=== PATIENT | female | born 1975 | race Native Hawaiian/Other Pacific Islander ===

== ENCOUNTER 2022-03-25 17:27 | Observation (INO) | payer OTHER ==
[~2022-03-25] VITALS: Ht 165.1 cm; Wt 64.0 kg
[2022-03-25 19:16] LABS: PLATELET COUNT 382 K/uL (152-353)
[2022-03-25 19:36] LABS: POTASSIUM 3.9 mmol/L (3.6-5.2); SODIUM 141 mmol/L (136-145)
[2022-03-25 20:00] VITALS: BP 117/66; TEMP 98.3
[2022-03-25 21:32] VITALS: BP 117/66; TEMP 98.3; Ht 165.1 cm; Wt 64.0 kg
[2022-03-26 00:09] VITALS: BP 97/60; TEMP 98.4
[2022-03-26 04:05] VITALS: BP 123/66; TEMP 97.6
[2022-03-26 04:54] LABS: PLATELET COUNT 353 K/uL (152-353)
[2022-03-26 05:19] LABS: POTASSIUM 3.8 mmol/L (3.6-5.2)
[2022-03-26 08:00] VITALS: BP 112/71; TEMP 97.5
[2022-03-26] MEDS ORDERED: IBUPROFEN 200200 MG PO (09:15)
[2022-03-26] MEDS ORDERED: BENADRYL ALLERG25 M2 PO (09:16)
== END 2022-03-26 14:30 | disposition home or self-care (01) ==
LOC: MED/SURG 17:27
PROVIDERS: ADMIT Family Medicine; ATTEND Family Medicine
DX: R07.89 Other chest pain (principal); R00.2 Palpitations; R53.83 Other fatigue; E66.8 Other obesity
CPT/HCPCS: 36415; 36416; 80053; 82550; 83735; 83880; 84100; 84436; 84443; 84481; 84484; 85027; 85610; 85730; 86644; 86645; 86665; 87502; 87635; 93005; 96372; 99220; G0378; G0379; J1650; U0003

== ENCOUNTER 2022-08-26 15:38 | Outpatient (CLI) | payer OTHER ==
[~2022-08-26 15:38] MED LIST: BENADRYL ALLERG25 M2 PO; IBUPROFEN 200200 MG PO
== END 2022-08-26 19:01 | disposition home or self-care (01) ==
LOC: RAD 15:38
PROVIDERS: ATTEND Nurse Practitioner Primary Care
DX: R05.1 Acute cough (principal)